=== PATIENT | female | born 1940 | race Caucasian/White ===

== ENCOUNTER 2020-08-17 01:02 | Emergency (ER) | payer MEDICARE ==
[~2020-08-17] VITALS: Ht 165.1 cm; Wt 92.1 kg
[2020-08-17 01:58] LABS: BASO % 0.1 % (0.0-1.0); EOS # 0.1 10*3/uL (0.0-0.4); EOS % 1.2 % (1.0-4.0); HEMATOCRIT 29.8 % (37.0-47.0); LYMPH # 0.8 10*3/uL (1.3-4.4); LYMPH % 9.5 % (27.0-41.0); MEAN CELL VOLUME 100.7 fl (81.0-99.0); MEAN CORPUSCULAR HGB 31.1 pg (27.0-31.0); MEAN CORPUSCULAR HGB CONC 30.9 g/dl (33.0-37.0); MEAN PLATELET VOLUME 9.5 fl (9.6-12.3); MONO # 0.8 10*3/uL (0.1-1.0); NEUT # 6.4 10*3/uL (2.3-7.9); PLATELET COUNT AUTOMATED 287 10*3/uL (130-400); RED BLOOD COUNT 2.96 10*6/uL (4.10-5.10); RED CELL DISTRI WIDTH 17.2 % (0-14.5); WHITE BLOOD COUNT 8.1 10*3/uL (4.8-10.8)
[2020-08-17 02:11] LABS: CREATININE 1.61 mg/dL (0.55-1.02); POTASSIUM 3.7 mmol/L (3.5-5.1)
[2020-08-17 03:06] LABS: BACTERIA 2+; BILIRUBIN Negative; BLOOD 2+ (Negative); CLARITY Turbid (Clear); COLOR Yellow (Yellow); GLUCOSE Negative; KETONE Negative; LEUKO ESTERASE 3+ (Negative); NITRITE Negative (Negative); SPECIFIC GRAVITY 1.015 (1.001-1.030); UROBILINOGEN 0.2 E.U./dl (0.0-1.0); WBC TNTC wbc/hpf (0-5)
[2020-08-17 03:07] LABS: RBC 31-40 rbc/hpf (0-2)
[2020-08-17] MEDS ORDERED: CIPRO500 MG PO (03:31)
== END 2020-08-17 04:26 | disposition other institution (70) ==
LOC: ED 01:02
PROVIDERS: Emergency Medicine
DX: N39.0 Urinary tract infection, site not specified (principal); Z88.2 Allergy status to sulfonamides

== ENCOUNTER 2021-07-26 06:14 | Inpatient (IN) | payer MEDICARE, MEDICAID ==
[~2021-07-26] VITALS: Ht 165 cm; Wt 76.0 kg
[~2021-07-26 06:14] MED LIST: ACIDOPHILUS1 EAC4 PO; ASPIRIN81 M1 PO; AZELASTINE137 MCG/0. NAS; BIOFREEZE118 ML T; CIPRO500 MG PO; CITALOPRAM HYDR10 MG PO; CLARITIN10 MG PO; DILTIAZEM CD240 MG PO; DIVALPROEX SOD250 M1 PO; DULCOLAX10 M1 R; ELIQUIS2.5 M1 PO; GLIPIZIDE5 M1 PO; IRON325 M1 PO; KLOR-CON 1010 ME1 PO; LEVOTHYROXINE100 MC1 PO; LISINOPRIL5 MG PO; MEGACE40 MG PO; MELATONIN 10 M1 EACH PO; METAMUCIL FIBE3.4 GM PO; METOPROLOL TART50 M1 PO; MILK OF MA400 MG/5 M PO; NATURE'S BLEND F1 MG PO; PANCREALIPASE PO; PROTONIX40 MG PO; REMERON15 M2 PO; SENNA8.6 MG PO; SIMVASTATIN20 MG PO; THERAGRAN-M PR1 EACH PO; TRAZODONE50 MG PO; TYLENOL325 M1 PO; WARFARIN SODIUM5 MG PO; ZOFRAN4 MG PO
[2021-07-26 06:20] VITALS: BP 124/90
[2021-07-26 07:25] LABS: HEMATOCRIT 28.8 % (37.0-47.0); MEAN CELL VOLUME 116.1 fl (81.0-99.0); MEAN CORPUSCULAR HGB 36.3 pg (27.0-31.0); MEAN CORPUSCULAR HGB CONC 31.3 g/dl (33.0-37.0); MEAN PLATELET VOLUME 10.2 fl (9.6-12.3); PLATELET COUNT AUTOMATED 226 10*3/uL (130-400); RED BLOOD COUNT 2.48 10*6/uL (4.10-5.10); RED CELL DISTRI WIDTH 19.9 % (0-14.5); WHITE BLOOD COUNT 5.6 10*3/uL (4.8-10.8)
[2021-07-26 07:50] LABS: ALBUMIN 2.5 gm/dl (3.1-4.5); ALKALINE PHOSPHATASE 83 U/L (45-117); BUN 21 mg/dl (7-24); CHLORIDE 112 mmol/L (98-107); CREATININE 1.38 mg/dL (0.55-1.02); POTASSIUM 4.1 mmol/L (3.5-5.1); SGOT/AST 12 IU/L (3-35); SGPT/ALT 18 U/L (12-78); SODIUM 143 mmol/L (136-145); TOTAL PROTEIN 5.4 gm/dL (6.4-8.2)
[2021-07-26 07:51] LABS: TOTAL CELLS COUNTED 100 #CELLS
[2021-07-26 07:52] LABS: PLATELET SUFFICIENCY NORMAL (NORMAL); TROPONIN I < 0.015 ng/ml (<0.045)
[2021-07-26 09:21] VITALS: BP 156/42
[2021-07-26 17:25] VITALS: BP 145/69
[2021-07-26 19:14] VITALS: BP 109/89
[2021-07-26] MEDS ORDERED: AMIODARONE HYD200 MG PO (20:38)
[2021-07-26] MEDS ORDERED: MONTELUKAST SOD10 MG PO (20:40)
[2021-07-26] MEDS ORDERED: ELIQUIS5 M1 PO (20:45)
[2021-07-26] MEDS ORDERED: ALBUTEROL2.5 MG/0.5 INH (20:45)
[2021-07-26] MEDS ORDERED: METOPROLOL SUCC50 M1 PO (20:46)
[2021-07-26] MEDS ORDERED: MUCINEX ER600 MG PO (20:47)
[2021-07-26] MEDS ORDERED: Carafate1 GM PO (20:48)
[2021-07-26] MEDS ORDERED: 24 HOUR ALLER15.8 ML INH (20:51)
[2021-07-26] MEDS ORDERED: HYDROXYZINE HCL25 MG PO (20:52)
[2021-07-26] MEDS ORDERED: MELATONIN10 M2 PO (20:53)
[2021-07-26 22:13] VITALS: BP 154/61
[2021-07-26 23:59] VITALS: BP 144/58
[2021-07-27 01:30] LABS: BILIRUBIN Negative (Negative); BLOOD Negative (Negative); CLARITY Clear (Clear); COLOR Yellow (Yellow); GLUCOSE Negative (Negative); KETONE Negative (Negative); LEUKO ESTERASE Negative (Negative); NITRITE Negative (Negative); UROBILINOGEN 0.2 E.U./dl (0.0-1.0)
[2021-07-27 01:56] LABS: RBC 0-2 rbc/hpf (0-2); WBC 0-2 wbc/hpf (0-5)
[2021-07-27 06:53] LABS: HEMATOCRIT 28.5 % (37.0-47.0); MEAN CELL VOLUME 115.4 fl (81.0-99.0); MEAN CORPUSCULAR HGB CONC 31.2 g/dl (33.0-37.0); MEAN PLATELET VOLUME 10.7 fl (9.6-12.3); PLATELET COUNT AUTOMATED 209 10*3/uL (130-400); RED BLOOD COUNT 2.47 10*6/uL (4.10-5.10); RED CELL DISTRI WIDTH 19.4 % (0-14.5)
[2021-07-27 07:23] LABS: ALBUMIN 2.4 gm/dl (3.1-4.5); CREATININE 1.25 mg/dL (0.55-1.02); TOTAL PROTEIN 5.3 gm/dL (6.4-8.2)
[2021-07-27 07:52] LABS: VITAMIN D, 25-HYDROXY 57.8 ng/mL (30-100)
[2021-07-27 07:53] LABS: PLATELET SUFFICIENCY NORMAL (NORMAL); TOTAL CELLS COUNTED 100 #CELLS
[2021-07-27 08:00] VITALS: BP 113/63
[2021-07-27 12:00] VITALS: BP 121/78
[2021-07-27 16:00] VITALS: BP 150/62
[2021-07-27 20:00] VITALS: BP 143/48
[2021-07-28] VITALS: BP 137/56
[2021-07-28 06:33] LABS: HEMATOCRIT 29.6 % (37.0-47.0); MEAN CELL VOLUME 115.2 fl (81.0-99.0); MEAN CORPUSCULAR HGB 35.8 pg (27.0-31.0); MEAN CORPUSCULAR HGB CONC 31.1 g/dl (33.0-37.0); MEAN PLATELET VOLUME 10.2 fl (9.6-12.3); PLATELET COUNT AUTOMATED 250 10*3/uL (130-400); RED BLOOD COUNT 2.57 10*6/uL (4.10-5.10); RED CELL DISTRI WIDTH 19.5 % (0-14.5); WHITE BLOOD COUNT 7.1 10*3/uL (4.8-10.8)
[2021-07-28 06:49] LABS: CREATININE 1.47 mg/dL (0.55-1.02); POTASSIUM 3.9 mmol/L (3.5-5.1)
[2021-07-28 07:54] LABS: PLATELET SUFFICIENCY NORMAL (NORMAL); TOTAL CELLS COUNTED 100 #CELLS
[2021-07-28 08:00] VITALS: BP 152/98
[2021-07-28 12:00] VITALS: BP 142/60
[2021-07-28 16:00] VITALS: BP 152/52
[2021-07-28 20:00] VITALS: BP 152/75
[2021-07-29] VITALS: BP 137/55
[2021-07-29 06:57] LABS: CREATININE 1.39 mg/dL (0.55-1.02); POTASSIUM 3.5 mmol/L (3.5-5.1)
[2021-07-29 08:00] VITALS: BP 115/48
[2021-07-29] MEDS ORDERED: LEVOFLOXACIN750 M2 PO (11:31)
== END 2021-07-29 15:13 | DRG 193 ==
LOC: ED 06:14 → 4E 08:39 → EDHOLD 08:39 → 4E 22:08
PROVIDERS: Emergency Medicine; Family Medicine; Hospitalist; Internal Medicine; ADMIT Student in an Organized Health Care Education/Training Program; ATTEND Student in an Organized Health Care Education/Training Program
DX: J18.9 Pneumonia, unspecified organism (principal); N17.0 Acute kidney failure with tubular necrosis; E44.0 Moderate protein-calorie malnutrition; K92.2 Gastrointestinal hemorrhage, unspecified; D53.9 Nutritional anemia, unspecified; E53.8 Deficiency of other specified B group vitamins; N18.32 Chronic kidney disease, stage 3b; E87.8 Other disorders of electrolyte and fluid balance, not elsewhere classified; I12.9 Hypertensive chronic kidney disease with stage 1 through stage 4 chronic kidney disease, or unspecified chronic kidney disease; I48.91 Unspecified atrial fibrillation; E11.22 Type 2 diabetes mellitus with diabetic chronic kidney disease; Z96.643 Presence of artificial hip joint, bilateral; E03.9 Hypothyroidism, unspecified; E78.5 Hyperlipidemia, unspecified; M25.561 Pain in right knee; B37.9 Candidiasis, unspecified; Z88.2 Allergy status to sulfonamides; Z88.0 Allergy status to penicillin; Z90.710 Acquired absence of both cervix and uterus; Z90.49 Acquired absence of other specified parts of digestive tract; Z83.3 Family history of diabetes mellitus; Z79.82 Long term (current) use of aspirin; Z79.899 Other long term (current) drug therapy; Z79.1 Long term (current) use of non-steroidal anti-inflammatories (NSAID); Z68.27 Body mass index [BMI] 27.0-27.9, adult

== ENCOUNTER → 2022-03-13 | Outpatient (CLI) | payer MEDICARE, MEDICAID ==
[~2022-03-13] MED LIST changes: +24 HOUR ALLER15.8 ML INH; +ALBUTEROL2.5 MG/0.5 INH; +AMIODARONE HYD200 MG PO; +CEFUROXIME AXE500 MG PO; +Carafate1 GM PO; +ELIQUIS5 M1 PO; +HYDROXYZINE HCL25 MG PO; +Imdur SA60 MG PO; +Ipratropium Brom3 ML INH; +LASIX40 MG PO; +LEVOFLOXACIN750 M2 PO; +MELATONIN10 M2 PO; +METOPROLOL SUCC50 M1 PO; +MONTELUKAST SOD10 MG PO; +MUCINEX ER600 MG PO; +MUSCLE RUB CREA35 GM T; +ROBITUSSIN COU237 M3 PO; +SALINE NASAL SP88 ML NAS; +VITAMIN B121000 MC1 PO; +ZOLOFT25 MG PO
== END | disposition home or self-care (01) ==
LOC: CT 09:53
PROVIDERS: ATTEND Internal Medicine
DX: N39.0 Urinary tract infection, site not specified (principal); R31.9 Hematuria, unspecified; J90 Pleural effusion, not elsewhere classified; J18.9 Pneumonia, unspecified organism

== ENCOUNTER 2022-10-13 02:46 | Inpatient (IN) | payer MEDICARE, MEDICAID ==
[2022-10-13] VITALS (7 sets, daily range): BP systolic 117–165; BP diastolic 46–69
[~2022-10-13] VITALS: Ht 152.4 cm; Wt 62.3 kg
[~2022-10-13 02:46] MED LIST changes: +ASCORBIC ACID500 M2 PO; +ASPIRIN CHILDRE81 MG PO; +BENADRYL ALLERG25 M5 PO; +BLUE GEL226.8 GM T; +Clopidogrel75 MG PO; +DONEPEZIL HYDROC5 MG PO; +HYDROCODONE-AC1 EAC1 PO; +Humalog SQ; +IMDUR SA30 MG PO; +MAGNESIUM200 MG PO; +METFORMIN HCL500 M2 PO; +MOBIC7.5 MG PO; +NOVOLIN 70100 UNIT/1 SQ; +Ondansetron4 MG PO; +POTASSIUM CHLO10 ME5 PO; +REQUIP2 MG PO
[2022-10-13 03:08] LABS: BASO % 0.2 % (0.0-1.0); EOS # 0.1 10*3/uL (0.0-0.4); EOS % 1.2 % (1.0-4.0); HEMATOCRIT 31.7 % (37.0-47.0); LYMPH # 1.1 10*3/uL (1.3-4.4); LYMPH % 12.3 % (27.0-41.0); MEAN CELL VOLUME 101.6 fl (81.0-99.0); MEAN CORPUSCULAR HGB 33.3 pg (27.0-31.0); MEAN CORPUSCULAR HGB CONC 32.8 g/dl (33.0-37.0); MEAN PLATELET VOLUME 10.5 fl (9.6-12.3); MONO # 0.9 10*3/uL (0.1-1.0); MONO % 9.4 % (3.0-9.0); NEUT # 7.1 10*3/uL (2.3-7.9); NEUT % 76.6 % (47.0-73.0); PLATELET COUNT AUTOMATED 157 10*3/uL (130-400); RED BLOOD COUNT 3.12 10*6/uL (4.10-5.10); RED CELL DISTRI WIDTH 22.3 % (0-14.5); WHITE BLOOD COUNT 9.3 10*3/uL (4.8-10.8)
[2022-10-13 03:23] LABS: CREATININE 1.67 mg/dL (0.55-1.02); POTASSIUM 4.3 mmol/L (3.5-5.1); TOTAL PROTEIN 5.7 gm/dL (6.4-8.2)
[2022-10-13] MEDS ORDERED: CLARITIN10 MG PO (07:09)
[2022-10-13] MEDS ORDERED: ARICEPT10 M1 PO (07:09)
[2022-10-13] MEDS ORDERED: FLOVENT HFA10.6 GM IH (07:10)
[2022-10-13] MEDS ORDERED: HYDROXYZINE HCL25 MG PO (07:11)
[2022-10-13] MEDS ORDERED: MELATONIN10 M4 PO (07:12)
[2022-10-13] MEDS ORDERED: Ipratropium Brom3 ML INH (07:15)
[2022-10-13] MEDS ORDERED: IMODIUM A-1 MG/7.51 PO (07:15)
[2022-10-13] MEDS ORDERED: GLUCAGON EMERGEN1 M1 IJ (07:17)
[2022-10-13] MEDS ORDERED: MULTIVITAMINS1 EAC1 PO (07:18)
[2022-10-13] MEDS ORDERED: MIRALAX POWDER17 G1 PO (07:19)
[2022-10-13] MEDS ORDERED: SIMVASTATIN20 MG PO ×2 (07:20→14:16)
[2022-10-13] MEDS ORDERED: TUSSIN COU15 MG/5 ML PO (07:21)
[2022-10-13] MEDS ORDERED: ZOLOFT25 MG PO (07:22)
[2022-10-13] MEDS ORDERED: IMDUR SA30 MG PO (14:12)
[2022-10-13] MEDS ORDERED: GLYCOTROL CAPS1 EACH PO (14:12)
[2022-10-13] MEDS ORDERED: ASPIRIN CHILDRE81 MG PO (14:13)
[2022-10-13] MEDS ORDERED: POTASSIUM CHLO10 MEQ PO (14:14)
[2022-10-13] MEDS ORDERED: LASIX40 MG PO (14:15)
[2022-10-13] MEDS ORDERED: LEVOTHYROXINE100 MC1 PO (14:16)
[2022-10-13] MEDS ORDERED: PROTONIX40 MG PO (14:17)
[2022-10-13] MEDS ORDERED: IRON325 M1 PO (14:17)
[2022-10-13] MEDS ORDERED: ACIDOPHILUS1 EAC4 PO (14:18)
[2022-10-13] MEDS ORDERED: VITAMIN C500 M8 PO (14:20)
[2022-10-13] MEDS ORDERED: DONEPEZIL HYDROC5 MG PO (14:20)
[2022-10-13] MEDS ORDERED: PLAVIX75 M1 PO (14:21)
[2022-10-13] MEDS ORDERED: METFORMIN HCL500 M2 PO (14:22)
[2022-10-13] MEDS ORDERED: MELOXICAM7.5 MG PO (14:24)
[2022-10-14] VITALS: BP 139/57
[2022-10-14 07:09] LABS: BASO % 0.2 % (0.0-1.0); EOS # 0.2 10*3/uL (0.0-0.4); EOS % 3.3 % (1.0-4.0); HEMATOCRIT 30.6 % (37.0-47.0); LYMPH # 1.2 10*3/uL (1.3-4.4); LYMPH % 22.2 % (27.0-41.0); MEAN CELL VOLUME 102.3 fl (81.0-99.0); MEAN CORPUSCULAR HGB 32.4 pg (27.0-31.0); MEAN CORPUSCULAR HGB CONC 31.7 g/dl (33.0-37.0); MEAN PLATELET VOLUME 10.9 fl (9.6-12.3); MONO # 0.6 10*3/uL (0.1-1.0); MONO % 11.4 % (3.0-9.0); NEUT # 3.2 10*3/uL (2.3-7.9); NEUT % 62.7 % (47.0-73.0); PLATELET COUNT AUTOMATED 145 10*3/uL (130-400); RED BLOOD COUNT 2.99 10*6/uL (4.10-5.10); RED CELL DISTRI WIDTH 22.1 % (0-14.5); WHITE BLOOD COUNT 5.2 10*3/uL (4.8-10.8)
[2022-10-14 07:23] LABS: ACT PARTIAL THROMBO TIME 31.8 SECONDS (20.0-32.1)
[2022-10-14 07:25] LABS: CREATININE 1.23 mg/dL (0.55-1.02); POTASSIUM 4.2 mmol/L (3.5-5.1); TOTAL PROTEIN 4.9 gm/dL (6.4-8.2)
[2022-10-14 08:00] VITALS: BP 137/81; BP 143/57
[2022-10-14 12:00] VITALS: BP 138/62
[2022-10-14 16:00] VITALS: BP 91/58
== END 2022-10-14 18:01 | DRG 311 ==
LOC: ED 02:46 → 4E 06:03 → EDHOLD 06:03 → 4E 07:35
PROVIDERS: Internal Medicine; ADMIT Family Medicine; ATTEND Family Medicine
DX: I24.8 Other forms of acute ischemic heart disease (principal); N17.0 Acute kidney failure with tubular necrosis; N17.9 Acute kidney failure, unspecified; E44.0 Moderate protein-calorie malnutrition; I13.0 Hypertensive heart and chronic kidney disease with heart failure and stage 1 through stage 4 chronic kidney disease, or unspecified chronic kidney disease; I50.32 Chronic diastolic (congestive) heart failure; Z66 Do not resuscitate; D53.9 Nutritional anemia, unspecified; I48.91 Unspecified atrial fibrillation; E03.9 Hypothyroidism, unspecified; E11.22 Type 2 diabetes mellitus with diabetic chronic kidney disease; E53.8 Deficiency of other specified B group vitamins; E78.2 Mixed hyperlipidemia; N18.31 Chronic kidney disease, stage 3a; F03.90 Unspecified dementia, unspecified severity, without behavioral disturbance, psychotic disturbance, mood disturbance, and anxiety; Z88.2 Allergy status to sulfonamides; Z88.8 Allergy status to other drugs, medicaments and biological substances; Z95.818 Presence of other cardiac implants and grafts; Z90.49 Acquired absence of other specified parts of digestive tract; Z83.3 Family history of diabetes mellitus; Z68.26 Body mass index [BMI] 26.0-26.9, adult

== ENCOUNTER 2022-11-18 00:01 | Emergency (ER) | payer MEDICARE, MEDICAID ==
[~2022-11-18] VITALS: Ht 165.1 cm; Wt 65.9 kg
[~2022-11-18 00:01] MED LIST changes: +ARICEPT10 M1 PO; +FLOVENT HFA10.6 GM IH; +GLUCAGON EMERGEN1 M1 IJ; +GLYCOTROL CAPS1 EACH PO; +IMODIUM A-1 MG/7.51 PO; +MELATONIN10 M4 PO; +MELOXICAM7.5 MG PO; +MIRALAX POWDER17 G1 PO; +MULTIVITAMINS1 EAC1 PO; +PLAVIX75 M1 PO; +POTASSIUM CHLO10 MEQ PO; +TUSSIN COU15 MG/5 ML PO; +VITAMIN C500 M8 PO
[2022-11-18 01:18] LABS: BASO % 0.2 % (0.0-1.0); EOS # 0.1 10*3/uL (0.0-0.4); LYMPH # 0.6 10*3/uL (1.3-4.4); LYMPH % 11.1 % (27.0-41.0); MEAN CELL VOLUME 103.6 fl (81.0-99.0); MEAN CORPUSCULAR HGB CONC 30.9 g/dl (33.0-37.0); MEAN PLATELET VOLUME 9.5 fl (9.6-12.3); MONO # 0.6 10*3/uL (0.1-1.0); MONO % 10.5 % (3.0-9.0); NEUT # 4.2 10*3/uL (2.3-7.9); NEUT % 75.8 % (47.0-73.0); PLATELET COUNT AUTOMATED 190 10*3/uL (130-400); RED BLOOD COUNT 3.09 10*6/uL (4.10-5.10); RED CELL DISTRI WIDTH 22.9 % (0-14.5); WHITE BLOOD COUNT 5.5 10*3/uL (4.8-10.8)
[2022-11-18 01:39] LABS: POTASSIUM 3.8 mmol/L (3.4-5.1); TOTAL PROTEIN 5.7 gm/dL (6.0-8.0)
[2022-11-18 04:27] LABS: BILIRUBIN Negative (Negative); BLOOD Trace-Lysed (Negative); CLARITY Turbid (Clear); COLOR Yellow (Yellow); GLUCOSE Negative (Negative); KETONE Negative (Negative); LEUKO ESTERASE 3+ (Negative); NITRITE Negative (Negative); SPECIFIC GRAVITY 1.015 (1.001-1.030)
[2022-11-18 05:03] LABS: BACTERIA 2+; MUCOUS 1+; WBC 21-30 wbc/hpf (0-5)
[2022-11-18] MEDS ORDERED: METRONIDAZOLE500 M1 PO (07:08)
[2022-11-18] MEDS ORDERED: AMOX-CLAV 875-1 EACH PO (07:08)
== END 2022-11-18 07:27 | disposition home or self-care (01) ==
LOC: ED 00:01
PROVIDERS: Family Medicine
DX: K57.32 Diverticulitis of large intestine without perforation or abscess without bleeding (principal); Z91.041 Radiographic dye allergy status; Z88.2 Allergy status to sulfonamides; Z88.8 Allergy status to other drugs, medicaments and biological substances; Z90.710 Acquired absence of both cervix and uterus; Z98.890 Other specified postprocedural states; F10.90 Alcohol use, unspecified, uncomplicated